=== PATIENT | male | born 1980 | race Asian ===

== ENCOUNTER 2019-11-16 13:58 | Emergency (ER) | payer BC, SELFPAY ==
[2019-11-16 14:14] VITALS: BP 122/78; PULSE 78; RESP 16; TEMP 37.2; O2SAT 100
--- NOTE | 2019-11-16 14:26 | ED.WOUNDLAC ---
HPI - Wound/Laceration General Chief Complaint: Wound/Laceration Stated Complaint: laceration Time Seen by Provider: 11/16/19 14:20 Source: patient Mode of arrival: ambulatory Limitations: no limitations History of Present Illness HPI narrative: Brannon Lozano is a 39-year-old male with no PMH who comes to express care with a superficial vertical laceration dorsum of hand that occurred 1 hour prior to arrival, controlled bleeding, no pain Related Data Allergies Allergy/AdvReac Type Severity Reaction Status Date / Time No Known Allergies Allergy Unverified 07/25/12 20:28 Review of Systems Review of Systems: Narrative: CONSTITUTIONAL: Denies fever, chills, sweats. EYES: Denies visual changes, redness, discharge. ENT: Denies rhinorrhea, congestion, sore throat, otalgia. CARDIOVASCULAR: Denies chest pain, palpitations, edema. RESPIRATORY: Denies dyspnea, wheezing, cough GASTROINTESTINAL: Denies abdominal pain, nausea, vomiting, diarrhea. GENITOURINARY: Denies dysuria, hematuria, abnormal discharge SKIN: Denies rash or itching. Laceration dorsum of hand on right NEUROLOGIC: Denies numbness, or focal weakness. PSYCHIATRIC: Denies anxiety or depression. [facility] Family History Family History (Updated 11/16/19 @ 14:28 by Angelique Last CNP) Other No active medical problems Social History Social History (Updated 11/16/19 @ 14:28 by Angelique Last CNP) Smoking status: Never smoker Alcohol intake: never Comments At time of signature, I agree with nursing past medical, surgical, social and family history. There is no relevant family history pertinent to the presenting complaint. Exam Narrative: Exam Narrative: GENERAL: This is a well-nourished, well-developed patient, in mild distress. HEAD: normocephalic, atraumatic. EYES: . Sclera clear/white. Vision is grossly intact. EARS: External ears normal, . Hearing grossly intact. NOSE: External nose normal without nasal discharge, nares without redness, no rhinorrhea. THROAT: Mucous membranes moist, NECK: Neck supple, CARDIOVASCULAR: Regular rate and rhythm without murmurs, gallops, or rubs. RESPIRATORY: Clear to auscultation. Breath sounds equal bilaterally. No wheezes, rales, or rhonchi. GASTROINTESTINAL: Abdomen soft, non-tender, SKIN: warm, 3 cm vertical laceration which is superficial on dorsum of hand between fingers 3 and 4 NEURO: awake, alert, and oriented to person, place and time. There were no obvious focal neurologic abnormalities. Steady gait EXTREMITIES: Normal range of motion. BACK: Nontender without deformity Course Course Emergency Course: Lac repair, tetanus immunization Vital Signs Vital signs: Vital Signs Temperature 98.9 F 11/16/19 14:14 Pulse Rate 78 11/16/19 14:14 Respiratory Rate 16 11/16/19 14:14 Blood Pressure 122/78 11/16/19 14:14 Pulse Oximetry 100 11/16/19 14:14 Temperature 98.9 F 11/16/19 14:14 Pulse Rate 78 11/16/19 14:14 Respiratory Rate 16 11/16/19 14:14 Blood Pressure 122/78 11/16/19 14:14 Pulse Oximetry 100 11/16/19 14:14 Procedures Laceration Laceration 1: Date: 11/16/19 Time: 14:30 Site: hand Side (If applicable): right Size (cm): 5 Description: linear Depth: simple, single layer Pre-repair: irrigated ====== Skin Level ====== Skin layer closed with: dermabond and steri strips ====== Subcutaneous Layer ====== ====== Muscle Layer ====== ====== Tendon Layer ====== Dressing: Tolerated well, gauze dressing MDM - Wound/Laceration Differential Diagnosis Differential diagnosis: Likely laceration, avulsion of skin and other Discharge Plan Discharge Clinical Impression: Laceration Patient Disposition: Home, Self-Care Condition: Stable Instructions: Antibiotic Form, Laceration (DC) Follow-up/Referrals: PHYSICIAN NOT ON STAFF,NONSTAFF [Non-Staff] - Time of Disposit
[2019-11-16] MEDS: TETANUS,DIPHTHERIA,AC PERTUSSIS ADULT (0.5 ML) BOOSTRIX IM (14:40)
== END 2019-11-16 15:02 | disposition home or self-care (01) ==
PROVIDERS: Emergency Provider Nurse Practitioner
DX: S61.411A Laceration without foreign body of right hand, initial encounter (principal); X58.XXXA Exposure to other specified factors, initial encounter; Z23 Encounter for immunization
CPT/HCPCS: 12002; 90471; 90715; 99212; G0463

== ENCOUNTER 2022-10-05 21:45 | Emergency (ER) | payer BC, SELFPAY ==
[2022-10-05 21:47] VITALS: BP 152/92; PULSE 73; RESP 18; O2SAT 98
--- NOTE | 2022-10-05 21:55 | ECG_ITS ---
Measurements Intervals [place] Rate: 70 P: 77 WV: 183 QRS: 67 QRSD: 100 T: 59 QT: 398 QTc: 431 Interpretive Statements SINUS RHYTHM NO PREVIOUS ECG AVAILABLE FOR COMPARISON Electronically Signed On 10-06-2022 13:46:04 CDT by Elier Barrios M.D.
[2022-10-05 22:36] LABS: Basophils Absolute Auto 0.1 K/mm3 (0.0-0.1); Basophils Percent Auto 0.8 % (0.2-1.2); Eosinophils Absolute Auto 0.2 K/mm3 (0-0.3); Eosinophils Percent Auto 2.7 % (0-4.4); Hematocrit 37.4 % (42.0-52.0); Hemoglobin 12.7 g/dL (14.0-18.0); Immature Granulocyte Absolute 0.03 K/mm3 (0.00-0.031); Immature Granulocyte Percent A 0.4 % (0-0.5); Lymphocytes Absolute Auto 1.89 K/mm3 (0.9-3.2); Lymphocytes Percent Auto 24.4 % (18.3-44.2); Mean Corpuscular Hemoglobin 29.9 pg (26-34); Monocytes Absolute Auto 0.5 K/mm3 (0.1-0.6); Monocytes Percent Auto 6.3 % (2.6-8.5); Neutrophils Absolute Auto 5.1 K/mm3 (1.3-6.7); Neutrophils Percent Auto 65.4 % (45.5-73.1); Platelet Count Result 269 k/mm3 (150-375); Red Blood Count 4.25 M/mm3 (4.6-6.20); Red Cell Distribution Width 12.2 % (11.5-14.5); White Blood Count 7.8 K/mm3 (4.5-10.0)
[2022-10-05 22:52] LABS: Alanine Aminotransferase 39 U/L (6-50); Albumin Level 4.2 g/dL (3.5-5.1); Alkaline Phosphatase 52 U/L (38-126); Anion Gap 6 mmol/L (8-16); Aspartate Amino Transferase 33 U/L (17-59); Bilirubin,Total 0.4 mg/dL (0.2-1.3); Blood Urea Nitrogen 23 mg/dL (9-20); Calcium 8.5 mg/dL (8.4-10.2); Carbon Dioxide 29 mmol/L (22-30); Chloride 103 mmol/L (98-107); Estimated CRCL calculation 107 ml/min; Estimated Glomerular Filt Rate > 60; Glucose 110 mg/dL (65-110); Potassium 3.8 mmol/L (3.4-5.0); Sodium 138 mmol/L (137-145)
[2022-10-05 23:04] LABS: Troponin I < 0.012 ng/mL (0.000-0.034)
[2022-10-06] VITALS: BP 115/73; PULSE 75; RESP 17; O2SAT 99
--- NOTE | 2022-10-06 01:01 | ED.GENADULT ---
HPI - General Adult General Chief complaint: Dizziness Stated complaint: tingling in l arm Time Seen by Provider: 10/05/22 21:58 History of Present Illness HPI narrative: Patient 41-year-old gentleman who presents the emergency department with chief complaint of lightheadedness and squeezing sensation in his chest. Patient states he also had a tingling sensation in his left arm. Patient reports that several months ago he had an episode where he passed out on the bathroom floor after having lightheadedness symptoms and tingling in his chest the patient states that today he felt similar to whenever he passed out but did not pass out today he did report some lightheaded sensation with this. Patient states that as he is arrived to the emergency department he is feeling much better at this time patient denies high blood pressure denies diabetes denies any other significant past medical history. The patient reports he did not follow-up with his primary care provider after the previous episode. Related Data Allergies Allergy/AdvReac Type Severity Reaction Status Date / Time No Known Allergies Allergy Unverified 07/25/12 20:28 Review of Systems Review of Systems: A 10 system review of systems was completed on the patient and is negative except for what is stated in the HPI. Nursing and ancillary documentation was reviewed. [facility] Family History Family History Other No active medical problems Social History Social History Smoking status: Never smoker Alcohol intake: never Exam Narrative: GENERAL: Well-appearing, well-nourished, and in no acute distress. HEAD: Normocephalic, atraumatic. EYES: PERRLA and EOMI. ENT: Nares clear, no rhinorrhea or epistaxis. Mucous membranes moist. NECK: Supple. CHEST: Clear to auscultation. No respiratory distress. HEART: Regular rate and rhythm. No murmur heard. Normal peripheral pulses. ABDOMEN: Soft, nontender, nondistended, normal active bowel sounds. EXTREMITIES: Normal range of motion. No edema. SKIN: Warm, dry, no rash. NEURO: No focal deficits. Alert and oriented x3. PSYCH: Normal mood and affect. Course Vital Signs Vital signs: Vital Signs Pulse Rate 73 10/05/22 21:47 Respiratory Rate 18 06/01/23 21:47 Blood Pressure 152/92 H 10/05/22 21:47 Pulse Oximetry 98 10/05/22 21:47 Oxygen Delivery Room Air 10/05/22 21:47 Pulse Rate 75 10/06/22 00:00 Respiratory Rate 17 10/06/22 00:00 Blood Pressure 115/73 10/06/22 00:00 Pulse Oximetry 99 10/06/22 00:00 Oxygen Delivery Room Air 10/05/22 21:47 Medical Decision Making MDM Narrative Medical decision making narrative: Differential diagnosis includes ACS, STEMI, electrolyte abnormality, dysrhythmia, syncope, Laboratory studies were obtained and showed a normal CBC and normal electrolyte profile normal liver enzymes initial troponin is less than 0.012 EKG showed sinus rhythm rate of [address] elevation or ST depression Repeat troponin was negative as well Vital Signs Vital Signs: Vital Signs Pulse Rate 73 10/05/22 21:47 Respiratory Rate 18 10/05/22 21:47 Blood Pressure 152/92 H 10/05/22 21:47 Pulse Oximetry 98 10/05/22 21:47 Oxygen Delivery Room Air 10/05/22 21:47 Pulse Rate 75 10/06/22 00:00 Respiratory Rate 17 10/06/22 00:00 Blood Pressure 115/73 10/06/22 00:00 Pulse Oximetry 99 10/06/22 00:00 Oxygen Delivery Room Air 10/05/22 21:47 Lab Data 10/05/22 22:32 10/05/22 22:32 Labs: Lab Results 10/05/22 10/06/22 Range/Units 22:32 00:45 WBC 7.8 (4.5-10.0) K/mm3 RBC 4.25 L (4.6-6.20) M/mm3 Hgb 12.7 L (14.0-18.0) g/dL Hct 37.4 L (42.0-52.0) % MCV 88.0 (80-100) fl MCH 29.9 (26-34) pg MCHC 34.0 (32-36) g/dl RDW 12.2 (11.5-14.5) % Plt Count
[2022-10-06 02:08] LABS: Troponin I < 0.012 ng/mL (0.000-0.034)
== END 2022-10-06 02:26 | disposition home or self-care (01) ==
PROVIDERS: Emergency Provider Emergency Medicine; PCP Nurse Practitioner Family
DX: R07.89 Other chest pain (principal); R55 Syncope and collapse
CPT/HCPCS: 36415; 80053; 84484; 85025; 93005; 99284

== ENCOUNTER 2023-10-01 09:04 | Emergency (ER) | payer BC, SELFPAY ==
--- NOTE | 2023-10-01 09:19 | ED.MALEGU ---
HPI - Male Genitourinary General Chief complaint: Urogenital-Male Stated complaint: UTI Time Seen by Provider: 10/01/23 09:20 Source: patient and RN notes reviewed Mode of arrival: ambulatory Limitations: no limitations History of Present Illness HPI Narrative: 42 y/o male presented for concern for UTI. Reports burning with urination intermittently for 2 weeks. Takes cranberry pills which improves symptoms temporarily. Denies hematuria, nausea, vomiting, abdominal pain, flank pain, constipation, diarrhea, fevers or chills. denies concern for STD. He is currently taking Clomid, trying to conceive. Has urologist for hx renal stones. Related Data Home Medications Medication Instructions Recorded Confirmed clomiphene citrate 50 mg tablet 50 mg PO DAILY 10/01/23 10/01/23 (Clomid) Allergies Allergy/AdvReac Type Severity Reaction Status Date / Time No Known Allergies Allergy Verified 10/01/23 09:16 Review of Systems Review of Systems: CONSTITUTIONAL: Denies body aches, fever, chills, or sweats. CARDIOVASCULAR: Denies chest pain, palpitations, or edema. RESPIRATORY: Denies cough or dyspnea. GASTROINTESTINAL: Denies abdominal pain, nausea, vomiting, or diarrhea. GENITOURINARY: Reports dysuria, frequency, urgency denies hematuria, flank pain SKIN: Denies rash, itching, or wounds. MUSCULOSKELETAL: Denies back pain or myalgia. [facility] Family History Family History Other No active medical problems Social History Social History Smoking status: Never smoker Alcohol intake: never Comments At time of signature, I have reviewed and agree with nursing past medical, surgical, social and family history unless otherwise noted. Please see nursing chart for further information. There is no relevant family history pertinent to the presenting complaint Exam Narrative: GENERAL: Well-appearing and in no acute distress. ENT: Mucous membranes pink and moist. NECK: Normal AROM. Supple. CHEST: No respiratory distress. Clear to auscultation. HEART: Regular rate and rhythm. ABDOMEN: Soft, nontender, nondistended, normal active bowel sounds. No CVA tenderness MUSCULOSKELETAL: No bony tenderness. SKIN: Warm, dry, no rash. NEURO: No focal deficits. Alert and oriented x3. Gait steady. PSYCH: Normal affect. Course Course Emergency Course: Patient is aware of diagnosis, understands and agrees to treatment plan. Anticipatory guidance given. Patient agrees to follow-up as directed and is aware of reasons to seek care at the emergency department. Portions of this record may have been created with voice recognition software Level of Care: Express Care Visit Vital Signs Vital signs: Reviewed MDM - Male Genitourinary MDM Narrative Medical decision making narrative: Result of urine reviewed with pt, will culture. No concern for STd. Discussed physical exam findings. Advised supportive measures and signs/symptoms to go to the ER. Pt is appropriate for outpt treatment and f/u. Differential Diagnosis Differential diagnosis: Likely urinary tract infection and urethritis Lab Data Labs: Urine Glucose Negative Reference Range: Negative Urine Bilirubin Negative Reference Range: Negative Urine Ketone Negative Reference Range: Negative Urine Specific [place] 1.025 Reference Range:1.001-1.035 Urine Blood Trace Reference Range: Negative * * Urine pH 6.0 *
[2023-10-01 10:21] VITALS: BP 126/62; PULSE 78; RESP 16; TEMP 37; O2SAT 100
== END 2023-10-01 09:43 | disposition home or self-care (01) ==
PROVIDERS: Emergency Provider Nurse Practitioner Family; PCP Nurse Practitioner Family
DX: R30.0 Dysuria (principal)
CPT/HCPCS: 81003; 87086; 99213; G0463

== ENCOUNTER 2023-10-06 12:02 | Emergency (ER) | payer BC, SELFPAY ==
--- NOTE | 2023-10-06 12:21 | ED_ITS ---
HPI - General Adult General Stated complaint: repeat sample Related Data Home Medications Medication Instructions Recorded Confirmed clomiphene citrate 50 mg tablet 50 mg PO DAILY 10/01/23 10/01/23 (Clomid) Allergies Allergy/AdvReac Type Severity Reaction Status Date / Time No Known Allergies Allergy Verified 10/01/23 09:16 [facility] Family History Family History Other No active medical problems Social History Social History Smoking status: Never smoker Alcohol intake: never Discharge Plan Discharge Prescriptions: No Action clomiphene citrate [Clomid] 50 mg tablet 50 mg PO DAILY Follow-up/Referrals: PHYSICIAN NOT ON STAFF,NONSTAFF [Primary Care Provider] -
--- NOTE | 2023-10-06 12:23 | ED.GENADULT ---
HPI - General Adult General Stated complaint: repeat sample History of Present Illness HPI narrative: I did not see this patient. He was returning for a urine culture as his urine sample was frozen from his recent visit here. Related Data Home Medications Medication Instructions Recorded Confirmed clomiphene citrate 50 mg tablet 50 mg PO DAILY 10/01/23 10/01/23 (Clomid) Allergies Allergy/AdvReac Type Severity Reaction Status Date / Time No Known Allergies Allergy Verified 10/01/23 09:16 COUNTS INCLUDE 234 BEDS AT THE [facility] Family History Family History Other No active medical problems Social History Social History Smoking status: Never smoker Alcohol intake: never Course Course Level of Care: Express Care Visit Discharge Plan Discharge Clinical Impression: Routine lab draw Patient Disposition: Home, Self-Care Condition: Stable Instructions: Antibiotic Form Prescriptions: No Action clomiphene citrate [Clomid] 50 mg tablet 50 mg PO DAILY Follow-up/Referrals: PHYSICIAN NOT ON STAFF,NONSTAFF [Primary Care Provider] - Time of Disposition: 12:24
== END 2023-10-06 12:24 | disposition left against medical advice (07) ==
PROVIDERS: Emergency Provider Nurse Practitioner
DX: R30.0 Dysuria (principal)
CPT/HCPCS: 87086; 99199

== ENCOUNTER 2023-10-18 16:59 | Emergency (ER) | payer BC, SELFPAY ==
--- NOTE | 2023-10-18 17:01 | ED.SKABFB ---
HPI - Skin/Abscess/Foreign Bdy General Chief complaint: Skin/Abscess/Foreign Body Stated complaint: Tick Bite Time Seen by Provider: 10/18/23 17:01 Source: patient Mode of arrival: ambulatory Limitations: no limitations History of Present Illness HPI narrative: Patient is a 42-year-old male that presents with tick bite to left underwear line. Patient was in [place] October 05 and noticed tick on the . Patient removed the tick at that time. Since then patient has had increased redness, itchiness and pain to site. Patient is concerned for Lyme disease. Denies any fever, chills, nausea, vomiting, diarrhea, joint pain. Related Data Home Medications Medication Instructions Recorded Confirmed clomiphene citrate 50 mg tablet 50 mg PO DAILY 10/01/23 10/01/23 (Clomid) Allergies Allergy/AdvReac Type Severity Reaction Status Date / Time No Known Allergies Allergy Verified 10/18/23 17:31 Review of Systems Review of Systems: All systems reviewed & are unremarkable except as noted in HPI and below Constitutional: Constitutional: Denies body ache(s), Denies chills, Denies fatigue, Denies fever(s), Denies headache(s), Denies malaise and Denies weakness Eyes: Eyes: Denies blurry vision, Denies irritation and Denies loss of vision ENT: Denies otalgia, Denies headache(s), Denies nasal discharge, Denies sinus pain and Denies sore throat Cardiovascular: Cardiovascular: Denies chest pain, Denies irregular heart rhythm and Denies dyspnea Respiratory: Respiratory: Denies dyspnea Gastrointestinal: Gastrointestinal: Denies abdominal pain, Denies melena, Denies hematochezia, Denies diarrhea, Denies nausea and Denies vomiting Musculoskeletal: Musculoskeletal: Denies back pain, Denies myalgias and Denies arthralgias Integumentary/Breasts: Skin/Breast: Reports pruritus and Reports rash Neurologic: Denies headache(s), Denies loss of vision and Denies weakness Psychiatric: Psychiatric: Reports no additional psychiatric complaints Endocrine: Endocrine: Denies fatigue [facility] Family History Family History Other No active medical problems Social History Social History Smoking status: Never smoker Alcohol intake: never Comments At time of signature, agree with nursing past medical, surgical, social and family history. There is no relevant family history pertinent to the presenting complaint. Exam Const: General: cooperative, healthy appearing, comfortable, no acute distress and well nourished Nutritional Appearance: well nourished Orientation/consciousness: patient oriented x3 Limitations: no limitations HENMT: Head: normal to inspection, normocephalic and atraumatic Ears: hearing grossly normal bilaterally and external ears normal Face/Nose/Sinus: Normal external nose present, normal facial exam and face symmetric Face and sinus: normal facial exam and face symmetric Mouth: Yes lip normal Eyes: General: appearance normal, both eyes and all related structures Alignment and Position: alignment normal and position normal Periorbital: periorbital findings normal Eyelids: eyelids normal Pupils: Equal, round and reactive pupils present EOM: EOMs intact bilaterally Neck: Neck: normal visual inspection, full ROM and supple Chest: Chest palpation & inspection: normal inspection of the chest Resp: Effort & Inspection: normal respiratory effort and able to speak in complete sentences Auscultation: clear to auscultation bilaterally Cardio: Rate: regular rate Rhythm: regular rhythm Heart sounds: S1 normal heart sound present and S2 normal heart sound present GI: Inspection: normal to inspection Skin: General skin exam: normal color and no rashes or lesions noted Full body images: 1. 5 cm x 1 cm area of erythema and induration. Center point with scab or tick was removed. No erythema migrans, fluctuati
[2023-10-18 17:10] VITALS: BP 132/80; PULSE 86; RESP 16; TEMP 37.2; O2SAT 100
== END 2023-10-18 17:45 | disposition home or self-care (01) ==
PROVIDERS: Emergency Provider Nurse Practitioner Family
DX: L03.314 Cellulitis of groin (principal)
CPT/HCPCS: 99213; G0463

== ENCOUNTER 2024-01-10 12:04 | Outpatient (CLI) | payer BC, SELFPAY ==
--- NOTE | ~2024-01-10 | XR_ITS ---
EXAMINATION: XR abdomen/kub 1V DATE: 01/10/2024 12:30 INDICATION: Left flank pain. TECHNIQUE: A supine view of the abdomen on 2 radiographs was obtained. COMPARISON: None. FINDINGS: There are no dilated loops of bowel. There is no visible urolithiasis. IMPRESSION: 1. No visible urolithiasis. Reviewed, dictated and finalized at location A. IMPRESSION: 1. No visible urolithiasis.
== END 2024-01-10 12:05 | disposition home or self-care (01) ==
LOC: ANHIMG 12:12
PROVIDERS: Visit Provider Physician Assistant
DX: R10.9 Unspecified abdominal pain (principal)
CPT/HCPCS: 74018